=== PATIENT | male | born 1965 | race Caucasian/White ===

== ENCOUNTER 2025-02-03 16:00 | Emergency (ER) | payer MEDICARE, SELFPAY ==
[2025-02-03 16:01] VITALS: BP 148/103
--- NOTE | 2025-02-03 16:46 | ED.GENMED ---
History of Present Illness
General
Chief Complaint: Musculo-Skeletal Complaint
Source: patient
Time Seen by Provider: 02/03/25 16:27
History of Present Illness
History of Present Illness:
59-year-old male presenting to the emergency department for evaluation of atraumatic left foot pain that has been ongoing for at least 2 months, describes the pain to be diffuse, intermittently burning sensation, intermittent paresthesia, unchanged
today however patient states he feels as if he is having increasing difficulty ambulating during this 2-month timeframe. Patient called EMS as he states he is not able to get down his stairs, notes that his daughter has been caring for him and
helping him with his activities of daily living. Patient sees orthopedist for his chronic back pain and right knee pain. Reports that he had a recent Synvisc injection into his right knee about 2 months ago and the pain in his foot started just a
couple days later. Denies any calf tenderness or edema. No other concerns.
Past History
Past History
ED Past Medical History: Other (Chronic back pain)
ED Past Surgical History: Appendectomy
Social History
Tobacco: Non-smoker
Alcohol: None
Drug: None
Living: with family
Review of Systems
Review of Systems
All Other Systems: ROS reviewed and negative except as documented in HPI and ROS
Phy Exam
Physical Exam
Physical Exam:
GENERAL: Alert , in no apparent distress, significantly overweight
EYE: clear conjunctiva b/l
HEAD: NCAT
ENT: o/p clr, mmm.
CARDIAC: Regular rate and rhythm .
LUNGS: Clear breath sounds bilaterally, no acute respiratory distress, no wheezes/rales/rhonchi
NEUROLOGICAL: Alert and oriented
SKIN: Warm and dry, skin intact.
MUSCULOSKELETAL: Left lower extremity: No obvious deformity, erythema, edema, ecchymosis, abrasions or lacerations. Sensation diminished over dorsum over great toe up towards ankle. No focal areas of tenderness. Easily palpable pedal and tibial
pulse. Cap refill less than 2 seconds. No calf tenderness or edema.
PSYCH: Normal and appropriate interaction.
,
Scores
Heart Failure Risk
Heart Failure Risk Score: Not Applicable
Heart Score for Chest Pain Patients
STEMI patient?: Not applicable
Withdrawal Assessment of Alcohol
Withdrawal Assessment Completed?: Not applicable
Course
Orders/Labs/Results
Orders:
Orders
02/03/25 16:46
Case Management Consult ONCE
Case Management Consult: Discharge Planning
Oxycodone/Acetaminophen [Percocet 5/325] 1 tablet PO NOW STA
CR Foot - Left Min 3 Views Urgent
Comment:
Reason For Exam: pain diffusely
Physical Therapy Consult [Pt Eval And Treat] Urgent
Activity Level: Ambulate
02/03/25 18:00
Case Management Consult ONCE
Case Management Consult: Discharge Planning
Comment: needs bariatric walker and commode for home
02/03/25 20:50
Basic Metabolic Panel Urgent
Complete Blood Count/With Diff Urgent
Hemoglobin A1c [Glycohemoglobin (HgbA1c)] Urgent
Abnormal Lab Results
02/03/25
20:50
WBC 13.2 H 10^3/uL
(4.8-10.8)
MCH 31.8 H pg
(27.0-31.0)
Abs Immat Gran (auto) 0.1 H 10^3/uL
(0-0.05)
Absolute Neuts (auto) 9.0 H 10^3/uL
(1.4-6.5)
Absolute Monos (auto) 1.1 H 10^3/uL
(0.1-0.6)
02/03/25 20:50
Vital Signs
Initial and Last Documented VS:
Initial Vital Signs
Temp Pulse Resp BP Pulse Ox
98.6 F 62 20 148/103 97
02/03/25 16:01 02/03/25 16:01 02/03/25 16:01 02/03/25 16:01 02/03/25 16:01
Last Documented Vital Signs
Temp Pulse Resp BP Pulse Ox
98.6 F 62 20 148/103 97
02/03/25 16:01 02/03/25 16:01 02/03/25 16:01 02/03/25 16:01 02/03/25 16:01
MDM/Problems Addressed
Differential Diagnosis Includes:
Plantar fasciitis, osteoarthritis, neuropathy, no symptoms to suggest infection, gout
MDM/Problems Addressed:
59-year-old male presenting the ER for chronic pain to his left foot. No change to his pain today but patient does note that he has been having a harder time ambulating since pain over the last 2 months. Patient stating he wants to be checked for
gout and diabetes as well as potentially go to rehab as he is having difficulty performing his activities of daily living. I discussed with patient that it is certainly possible that he may have diabetes however he does not appear to be having any
acute complications from diabetes and that workup for diabetes as an outpatient regimen. Patient also concern for gout and while I discussed with patient that his symptoms could be related to gout given the diffuse nature of his symptoms as well as
the burning sensation/neuropathy type symptoms I am less suspicious for gout as a diagnosis as well as this would not be something that would require him to be admitted to the hospital. Given the time of night I am unsure as to if I would be able
to obtain a case management and physical therapy consult. Will obtain x-ray and treat patient with a dose of Percocet here. Patient may need to be discharged home and have continued outpatient management. He does have medical insurance and
follows with orthopedist at an outside institution.
*Radiology
Radiology exam reviewed: preliminary read by ED provider (Chronic appearing midfoot abnormalities but no acute fracture)
*Pulse Oximetry
Patient hypoxic: no
*Critical Care Note
Total Time (30-74mins, 75-104mins- exclusive of procedures): Not Applicable
Patient Management
Discussion with other providers: [employer] Gauger and Other
Escalation/DeEscalation of care consider admission/obs:
Patient seen by physical therapy and was able to use a walker to get around. Physical therapy recommending patient be given a prescription for a bariatric walker and a commode that he can use at home. Unfortunately case management not available to
see the patient this evening. I did however place an order for case management to check the patient to help facilitate the patient a walk noted at home and I provided the patient with a prescription for this as well. I also messaged on-call
flattening machine operator, Dr. Mccoy, about patient's symptoms as well as pictures of his x-ray and podiatry feels symptoms are likely related to a Charcot foot or Peterson Short and that they would be able to follow-up with the patient, would have office staff
reach out for a follow-up visit. I initially ordered lab work to help facilitate the outpatient follow-up as patient could potentially have diabetes which would affect his outpatient management. I went to discuss the results with the patient who
seems to be unhappy with his workup here and was hoping to go to inpatient rehab. I expressed to the patient that he was able to use the walker to ambulate and that physical therapy did not feel he needed inpatient evaluation and that I would not
be able to admit him to the hospital for a chronic issue that would not change his treatment plan. Both patient and daughter continuously upset however I explained to them that I am unable to further treat patient in the emergency room. I did
offer transport home however did inform that there might be an [id number] cost given no acute medical reason for transport. Patient continually upset and requested me to leave the room. He is otherwise stable for discharge from the emergency
room.
ED Attending Note
-
Portions of this chart may have been created with voice recognition software.� Occasional wrong word or��sound alike� substitutions may have occurred due to the inherent limitations of voice recognition software.
Discharge Plan
Departure
Patient Disposition: Home (Routine Discharge)
Date of Disposition: 02/03/25
Time of Disposition: 18:11
Patient with high blood pressure during this ER visit?: Yes
Discharge Problem:
Chronic pain in left foot
Instructions: Peripheral neuropathy
Prescriptions:
New
gabapentin 300 mg capsule
300 mg PO DAILY Qty: 10 0RF
Referrals:
Jovanni Mccoy DPM [Active] - (Podiatry)
Interventions
Interventions:
*General Assessment Last Done: 02/03/25 16:01
*Neglect/Abuse Screening Last Done: 02/03/25 16:01
*ED COVID-19 Vaccine History Last Done: 02/03/25 16:32
ED-Musculoskeletal Assessment Last Done: 02/03/25 16:36
Discharge Date and Time
Print Language: BELARUSIAN
[2025-02-03] MEDS: PERCOCET 5/325 1 TABLET PO (17:43)
[2025-02-03 20:59] LABS: % Basophils 0.5 % (0-2); % Eosinophils 1.7 % (0-6); % Immature Granulocytes 0.5 % (0-0.5); % Lymphocytes 20.8 % (20.5-51.1); % Monocytes 8.2 % (1.7-9.3); % Neutrophils 68.3 % (42.2-75.2); Absolute Basophils 0.1 10^3/uL (0-0.2); Absolute Eosinophils 0.2 10^3/uL (0-0.7); Absolute Immature Granulocytes 0.1 10^3/uL (0-0.05); Absolute Lymphocytes 2.8 10^3/uL (1.2-3.4); Absolute Monocytes 1.1 10^3/uL (0.1-0.6); Hematocrit 45.6 % (39.0-52.0); Hemoglobin 15.9 g/dL (13.0-18.0); Mean Corp Hgb Conc. 34.9 g/dL (33.0-37.0); Mean Corpuscular Hgb 31.8 pg (27.0-31.0); Mean Corpuscular Volume 91.2 fL (80.0-94.0); Mean Platelet Volume 9.2 fL (7.4-10.4); Nucleated Red Blood Cells % 0 % (-); Platelet Count 242 10^3/uL (130-400); Red Cell Dist. Width 11.7 % (11.5-14.5); White Blood Cell Count 13.2 10^3/uL (4.8-10.8)
[2025-02-03 21:20] LABS: Blood Urea Nitrogen 12 mg/dl (9-20); Calcium 10.2 mg/dl (8.4-10.2); Carbon Dioxide 21 mmol/L (22-30); Chloride 103 mmol/L (98-107); Glucose 110 mg/dl (70-99); Potassium 3.7 mmol/L (3.5-5.1); Sodium 137 mmol/L (135-145); eGFR > 60.00
--- NOTE | 2025-02-04 10:43 | CM ---
ED CM consult for dc planning
Per PT eval, bariatric commode and [facility] walker provided bedside
[facility] unable to be coordinated last night due to annita crews needs
[facility] scheduled for 1100 to home today, confirmed with [facility]
Pt and dtr inquiring if inpt rehab can be arranged instead
Pt without qualifying [facility] stay and not eligible for [employer] waiver
Pt declined private pay SNF placement
Noted transportation issues with arranging for outpt care
[facility] ambulance provider list provided to pt
He plans to follow up to establish ortho/podiatry care in [facility] first
Will speak with his current ortho for recommendations as he does not plan to call [facility] for care
PCP- Dr Pickering at [facility]
Marcy in agreement with plan for dc to home with community resources and outpt followup
He requested pain meds prior to dc
[2025-02-04] MEDS: NEURONTIN 300 MG PO (10:44)
[2025-02-04 10:51] LABS: Glycohemoglobin (HgbA1c) 5.8 % (4.0-5.6)
--- NOTE | 2025-02-04 10:54 | EDRN ---
Reviewed discharge instructions with patient. Verbalized understanding. Report given to [facility].
[2025-02-04 10:55] VITALS: BP 141/98
== END 2025-02-04 10:57 | disposition home or self-care (01) ==
LOC: EMR 16:00
PROVIDERS: Physician Assistant Medical; EMERGENCY PHYSICIAN Emergency Medicine
DX: G89.29 Other chronic pain (principal); M79.672 Pain in left foot; Z90.49 Acquired absence of other specified parts of digestive tract
CPT/HCPCS: 99283; 73630; 80048; 83036; 85025